=== PATIENT | male | born 1965 | race African-American/Black ===

== ENCOUNTER 2023-11-21 13:05 | Emergency (ER) | payer OTHER, SELFPAY ==
[2023-11-21] VITALS (14 sets, daily range): BP systolic 137–176; BP diastolic 83–121; PULSE 99–112; TEMP 36.6; O2SAT 97–99; BMI 30.3
--- NOTE | 2023-11-21 13:32 | ECG_ITS ---
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
--- NOTE | 2023-11-21 13:33 | ED.GENADUL1 ---
HPI HPI - General Adult General Chief complaint: Chest Pain Stated complaint: CHEST PAIN Time Seen by Provider: 11/21/23 13:17 Source: patient Mode of arrival: walk-in Limitations: no limitations History of Present Illness HPI narrative: Patient is a 58-year-old male who presents to the emergency department for the evaluation of chest pain across the left side of the chest for the last 3 days. Pain has been constant and he reports burning and soreness to the bilateral axilla and medial arms. He has not noticed any rashes. No lifting or twisting injuries. He has no history of coronary artery disease. He has not had any fevers, chills, cough, congestion, abdominal pain. He has chronic back pain that is not worse or different. No peripheral edema. Pain in the left chest is reproducible with touch and some movement. He states he has taken lisinopril for the last 30 years, no change in dosages. He states he has been using nitroglycerin that he took from a friend, not prescribed to him, for the last 2 days for chest pain without improvement. Related Data Home Medications ?Medication ?Instructions ?Recorded ?Confirmed insulin aspart U-100 100 unit/mL 45 unit subcut BID 11/21/23 11/21/23 (3 mL) subcutaneous pen (Novolog FlexPen U-100 Insulin aspart) lisinopril 40 mg tablet 40 mg PO DAILY 11/21/23 11/21/23 Previous Rx's ?Medication ?Instructions ?Recorded ketorolac 10 mg tablet 10 mg PO TID PRN pain #10 tabs 11/21/23 methocarbamol 750 mg tablet 750 mg PO TID PRN muscle pain #20 11/21/23 tabs Allergies Allergy/AdvReac Type Severity Reaction Status Date / Time No Known Drug Allergies Allergy Verified 11/21/23 13:23 Opioid HPI Opioid Management Most Recent Opioid Data: No Data to Display Review of Systems ROS Constitutional Denies: fever or chills Ears, nose, mouth, and throat Denies: throat pain or nasal congestion Cardiovascular Reports: chest pain Respiratory Denies: shortness of breath or cough Gastrointestinal Denies: nausea or vomiting Musculoskeletal Reports: back pain; Denies: neck pain or extremity pain Integumentary/Breast Denies: rash Neurological Denies: numbness in extremities or weakness in extremities Hematologic/Lymphatic Denies: easy bruising Exam Narrative Exam Narrative: Gen.: Awake, alert, in no distress Head: Normocephalic, atraumatic ENT: Moist mucous membranes Respiratory: No respiratory distress, lungs clear bilaterally Cardio: Tachycardia Gastrointestinal: Abdomen is soft, nondistended and nontender to palpation Extremities: Moves extremities equally Psych: Normal mood and affect Neuro: No focal neuro deficit Skin: Warm, dry, intact Constitutional Vital Signs, click to edit/add: Last Vital Signs Temp 98 F 11/21/23 13:23 Pulse 103 H 11/21/23 16:38 Resp 27 H 11/21/23 16:38 BP 152/109 H 11/21/23 16:38 Pulse Ox 99 11/21/23 16:38 O2 Del Method Room Air 11/21/23 13:23 Course Vital Signs Vital signs: Vital Signs Pulse Rate 112 H 11/21/23 13:12 Respiratory Rate 18 11/21/23 13:12 Blood Pressure 168/105 H 11/21/23 13:12 Pulse Oximetry 99 11/21/23 13:12 Oxygen Delivery Method Room Air 11/21/23 13:12 Temperature 98 F 11/21/23 13:23 Pulse Rate 103 H 11/21/23 16:38 Respiratory Rate 27 H 11/21/23 16:38 Blood Pressure 152/109 H 11/21/23 16:38 Pulse Oximetry 99 11/21/23 16:38 Oxygen Delivery Method Room Air 11/21/23 13:23 Medical Decision Making [facility] Narrative Medical decision making narrative: Patient with a heart score of 3 for risk factors of diabetes, hypertension, age and family history. He has no EKG changes, stable vital signs in the ER. He had 2 negative troponin lab studies and CT angio of the chest was performed for elevated D-dimer showing no evidence of PE or other abnormality. Patient's pain has been present for 3 days, it is reproducible and he has an unremarkable workup. He is discharged home with a short course of NSAIDs and muscle relaxants to follow-up with PCP and return to the ER if symptoms change or worsen. SUPERVISED APC VISIT, PHYSICIAN ATTESTATION: Based on the medical record the care appears appropriate. ? Medical Records Medical records reviewed: Yes I reviewed the patient's medical records Lab Data Lab results reviewed: Yes I reviewed the patient's lab results Labs: Lab Results 11/21/23 11/21/23 Range/Units 13:37 15:37 WBC 5.7 (4.0-11.0) 10^3/uL RBC 4.91 (4.70-6.10) 10^6/uL Hgb 15.0 (14.0-18.0) g/dL Hct 42.2 (42.0-54.0) % MCV 85.9 (80.0-94.0) fL MCH 30.5 (25.9-34.0) pg MCHC 35.5 H (29.9-35.2) g/dL RDW 12.4 (11.0-15.0) % Plt Count 202 (150-450) 10^3/uL MPV 11.1 (9.5-13.5) fL Neut % (Auto) 63.2 (43.0-75.0) % Lymph % (Auto) 24.6 (20.5-60.0) % [place] % (Auto) 11.0 (1.7-12.0) % Eos % (Auto) 0.3 L (0.9-7.0) % Baso % (Auto) 0.7 (0.2-2.0) % Neut # (Auto) 3.6 (1.4-6.5) 10^3/uL Lymph # (Auto) 1.4 (1.2-3.8) 10^3/uL [place] # (Auto) 0.6 (0.3-0.8) 10^3/uL Eos # (Auto) 0.0 (0.0-0.7) 10^3/uL Baso # (Auto) 0.0 (0.0-0.1) 10^3/uL Abs Immat Gran (auto) 0.01 (0.00-0.03) 10^3/uL Imm/Tot Granulo (auto) 0.2 (0.0-0.5) % PT 9.9 (9.0-11.6) sec INR 0.93 D-Dimer 1.13 H* (<=0.59) mg/L FEU Sodium 137 (136-145) mmol/L Potassium 3.9 (3.5-5.1) mmol/L Chloride 101 (98-107) mmol/L Carbon Dioxide 27.7 (21.0-32.0) mmol/L Anion Gap 12.2 BUN 15.0 (7.0-18.0) mg/dL Creatinine 1.09 (0.70-1.30) mg/dL Est GFR ( Amer) >60 (>=60) Est GFR (Non-Af Amer) >60 (>=60) BUN/Creatinine Ratio 13.8 Glucose 246 H (74-106) mg/dL Lactate 1.7 (0.4-2.0) mmol/L Calcium 9.3 (8.5-10.1) mg/dL Total Bilirubin 0.4 (0.2-1.0) mg/dL AST 16 (15-37) U/L ALT 27 (16-63) U/L Alkaline Phosphatase 89 (46-116) U/L Troponin I High Sens 9.5 9.5 (4.0-76.1) pg/mL NT-Pro-B Natriuret Pep 80.0 (<=900.0) pg/mL Total Protein 6.9 (6.4-8.2) g/dL Albumin 3.4 (3.4-5.0) g/dL Globulin 3.5 g/dL Albumin/Globulin Ratio 1.[address] scan - chest: Attestation: I have reviewed the pertinent imaging results. Radiologist's impression: ITS Impressions Chest CTA 11/21/23 14:25 IMPRESSION: 1. No evidence for pulmonary embolism. 2. Severe coronary artery calcification. Electronically authenticated by: SAMUEL TOMLIN Date: 11/21/2023 17:08 ECG Data Attestation: I personally reviewed and interpreted this ECG as follows: (Sinus tachycardia at a rate of 112, no acute ST elevation or ectopy. EKG reviewed by attending physician.) Discharge Plan Discharge Stand Alone Forms: Work/School Release, Portal Instructions Chief Complaint: Chest Pain Clinical Impression: Chest pain Patient Disposition: Home, Self-Care Time of Disposition Decision: 17:12 Condition: Good Prescriptions / Home Meds: New ketorolac 10 mg tablet 10 mg PO TID PRN (Reason: pain) Qty: 10 0RF methocarbamol 750 mg tablet 750 mg PO TID PRN (Reason: muscle pain) Qty: 20 0RF No Action lisinopril 40 mg tablet 40 mg PO DAILY insulin aspart U-100 [Novolog FlexPen U-100 Insulin] 100 unit/mL (3 mL) insulin pen 45 unit subcut BID Print Language: Palauan Instructions: Chest Pain (ED) Referrals: Physician,Non-Staff, MD [Primary Care Provider] - 1 week
[2023-11-21 13:45] LABS: Basophils Percent Auto 0.7 % (0.2-2.0); Eosinophils Percent Auto 0.3 % (0.9-7.0); Hematocrit 42.2 % (42.0-54.0); Immature Granulocytes Abs Auto 0.01 10^3/uL (0.00-0.03); Immature Granulocytes Pct Auto 0.2 % (0.0-0.5); Lymphocytes Absolute Auto 1.4 10^3/uL (1.2-3.8); Lymphocytes Percent Auto 24.6 % (20.5-60.0); Mean Corpuscular HGB Conc 35.5 g/dL (29.9-35.2); Mean Corpuscular Hemoglobin 30.5 pg (25.9-34.0); Mean Corpuscular Volume 85.9 fL (80.0-94.0); Mean Platelet Volume 11.1 fL (9.5-13.5); Monocytes Absolute Auto 0.6 10^3/uL (0.3-0.8); Neutrophils Absolute Auto 3.6 10^3/uL (1.4-6.5); Neutrophils Percent Auto 63.2 % (43.0-75.0); Platelet Count 202 10^3/uL (150-450); Red Blood Count 4.91 10^6/uL (4.70-6.10); Red Cell Distribution Width 12.4 % (11.0-15.0); White Blood Count 5.7 10^3/uL (4.0-11.0)
[2023-11-21] MEDS: 0.9 % SODIUM CHLORIDE 1,000 ML 999 ML IV (13:45)
[2023-11-21] MEDS: KETOROLAC TROMETHAMINE 30 MG/ML VIAL IVP (13:45)
[2023-11-21 14:04] LABS: INR 0.93; Prothrombin Time 9.9 sec (9.0-11.6)
[2023-11-21 14:08] LABS: Lactate/Lactic Acid 1.7 mmol/L (0.4-2.0)
[2023-11-21 14:13] LABS: Troponin I High Sensitivity 9.5 pg/mL (4.0-76.1)
[2023-11-21 14:15] LABS: Alanine Aminotransferase 27 U/L (16-63); Albumin Level 3.4 g/dL (3.4-5.0); Alkaline Phosphatase 89 U/L (46-116); Anion Gap 12.2; Aspartate Amino Transferase 16 U/L (15-37); BUN Creatinine Ratio 13.8; Bilirubin Total 0.4 mg/dL (0.2-1.0); Calcium 9.3 mg/dL (8.5-10.1); Carbon Dioxide 27.7 mmol/L (21.0-32.0); Chloride 101 mmol/L (98-107); Estimated GFR (African America >60 (>=60); Estimated GFR (Non-African Ame >60 (>=60); Globulin 3.5 g/dL; Glucose 246 mg/dL (74-106); Potassium 3.9 mmol/L (3.5-5.1); Sodium 137 mmol/L (136-145); Total Protein 6.9 g/dL (6.4-8.2)
[2023-11-21 14:25] LABS: D Dimer 1.13 mg/L FEU (<=0.59)
--- NOTE | 2023-11-21 14:25 | CT_ITS ---
[address] [address] Patient Name: AMERICO TATE MRN: [id number] date: 1965 Sex: M Assigned Patient Location: ER Current Patient Location: ER Accession/Order Number: [id number] Exam Date: 11/21/2023 15:05 Report Date: 11/21/2023 17:08 At the request of: JAZ SMITH Procedure: CT angio chest EXAM: CT angio chest HISTORY: Chest pain COMPARISON: 12/08/2009 TECHNIQUE: CT angiography of the pulmonary arteries following the administration of intravenous contrast. Coronal and sagittal MIP (maximum intensity projection) images were performed. Dose reduction techniques were achieved by using automated exposure control and/or adjustment of mA and/or kV according to patient size and/or use of iterative reconstruction technique. FINDINGS: The study is technically adequate for the diagnosis of pulmonary embolism, with good contrast bolus to the pulmonary arteries. TUBES AND IMPLANTS: None. CHEST WALL AND LOWER NECK: Unremarkable. BONES: No suspicious lesions. UPPER ABDOMEN: Unremarkable. MEDIASTINUM AND MAGGIE: Unremarkable. AORTA: No aneurysm PULMONARY ARTERIES: No embolism HEART: Not enlarged CORONARY ARTERIES: Severe coronary artery calcifications. LUNG AND AIRWAYS: Unremarkable. PLEURA: Unremarkable. CT/CT angio chest IMPRESSION: 1. No evidence for pulmonary embolism. 2. Severe coronary artery calcification. Electronically authenticated by: SAMUEL TOMLIN Date: 11/21/2023 17:08
[2023-11-21 16:10] LABS: Troponin I High Sensitivity 9.5 pg/mL (4.0-76.1)
== END 2023-11-21 17:20 | disposition home or self-care (01) ==
PROVIDERS: Physician Assistant; Emergency Provider Emergency Medicine
DX: R07.9 Chest pain, unspecified (principal); E11.9 Type 2 diabetes mellitus without complications; Z79.4 Long term (current) use of insulin; I10 Essential (primary) hypertension; Z79.899 Other long term (current) drug therapy
CPT/HCPCS: 36415; 71275; 80053; 83605; 83880; 84484; 85025; 85378; 85610; 93005; 96374; 99285; J1885; Q9967

== ENCOUNTER 2024-06-04 07:28 | Emergency (ER) | payer MEDICARE, SELFPAY ==
[2024-06-04] VITALS (27 sets, daily range): BP systolic 159–210; BP diastolic 86–112; PULSE 89–100; TEMP 37; O2SAT 98–100; BMI 28.5
--- NOTE | 2024-06-04 08:06 | ECG_ITS ---
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 Measurements Intervals [place] Rate: 95 P: 90 FL: 144 QRS: 69 QRSD: 84 T: 37 QT: 364 QTc: 417 Interpretive Statements 1100 Sinus rhythm 1102 Sinus arrhythmia [address] & [place] abnormality 9150 abnormal ECG Compared to ECG 11/21/2023 13:14:56 ST (T wave) deviation now present Sinus tachycardia no longer present Short [place] interval no longer present Electronically Signed On 06-04-2024 17:27:27 EDT by SIMONE HARLEY M.D.
--- NOTE | 2024-06-04 08:10 | ED_ITS ---
HPI HPI - General Adult General Chief complaint: Psychiatric Symptoms Stated complaint: upper extremity pain Time Seen by Provider: 06/04/24 07:34 Mode of arrival: walk-in History of Present Illness HPI narrative: 58-year-old male to the emergency department with multiple medical complaints. The patient reports that he has been using alcohol and cocaine daily for the last 2 years. He reports he has trouble sleeping at night due to his PTSD. He reports that is hard for him to leave the house to go to his medical appointments at the [facility] so he has not gone in over a year. He reports that he tried to use some harder drugs recently and ended up with an abscess on his right forearm that began over the last 5 days. He reports the abscess is what brought him to the emergency department today. He reports that he has suicidal ideation intermittently for years. He denies any plan. He denies any attempts. He denies any auditory visual hallucinations. When asked why he came to the emergency department today he says I just need some help man . He also has chronic pain in his right knee due to a previous patellar fracture that occurred over a year ago. He reports that the pain is not getting better and he is concerned he refractured it. There is no specific injury. He also reports that he gets a cramping pain up the back of his leg intermittently for the last few weeks. He is concerned he has a blood clot in his leg. Related Data Home Medications ?Medication ?Instructions ?Recorded ?Confirmed insulin aspart U-100 100 unit/mL 45 unit subcut BID 11/21/23 06/04/24 (3 mL) subcutaneous pen (Novolog FlexPen U-100 Insulin aspart) lisinopril 40 mg tablet 40 mg PO DAILY 11/21/23 06/04/24 Previous Rx's ?Medication ?Instructions ?Recorded methocarbamol 750 mg tablet 750 mg PO TID PRN muscle pain #20 11/21/23 tabs cephalexin 500 mg capsule 500 mg PO Q6H 7 days #28 caps 06/04/24 doxycycline monohydrate 100 mg 100 mg PO BID 7 days #14 caps 06/04/24 capsule Allergies Allergy/AdvReac Type Severity Reaction Status Date / Time No Known Drug Allergies Allergy Verified 11/21/23 13:23 Opioid HPI Opioid Management Most Recent Opioid Data: Ur Phencyclidine Scrn Negative (NEGATIVE) 06/04/24 08:12 05/19 10/12 Review of Systems ROS Status of ROS 10 or more systems reviewed and unremark able except as noted in history and below [facility] Social History Little interest or pleasure in doing things: not at all Feeling down, depressed, or hopeless: not at all Exam Narrative Exam Narrative: VITALS: I have reviewed the triage vital signs. GENERAL: Well developed, well appearing adult male in no acute distress. NEURO: Alert and oriented. Moves all extremities. Face is symmetric and expressive. EYES: PERRL. No scleral icterus or conjunctival injection. No discharge. HENT: Normocephalic, atraumatic. Hearing is grossly intact. Nares grossly patent and without discharge. Mucous membranes moist. NECK: No JVD. Patient moves neck without restriction. CARDIO: Rhythm regular. Normal rate. No murmur, rub, or gallop. Pulses equal bilaterally in the upper and lower extremity. No lower extremity edema. PULM: Lungs clear to auscultation in all blakely. No wheezes, rales, or rhonchi. No conversational dyspnea. No splinting, stridor, or accessory muscle use. GI/: Abdomen is soft and non-tender. Normoactive bowel sounds. EXTREMITIES: Symmetric muscle bulk. No joint swelling. No clubbing, cyanosis, or deformity. SKIN: Warm and dry. Normal turgor. No rash or lesions appreciated. Half dollar sized area of fluctuance erythema and warmth that is tender to the right anterior forearm. PSYCH: Anxious, tearful Constitutional Vital Signs, click to edit/add: Last Vital Signs Temp 98.6 F 06/04/24 07:32 Pulse 98 H 06/04/24 15:20 Resp 23 H 06/04/24 15:20 BP 168/96 H 06/04/24 15:28 Pulse Ox 100 06/04/24 11:00 O2 Del Method Room Air 06/04/24 07:32 Course Vital Signs Vital signs: Vital Signs Temperature 98.6 F 06/04/24 07:32 Pulse Rate 100 H 06/04/24 07:32 Respiratory Rate 18 06/04/24 07:32 Blood Pressure 210/90 H 06/04/24 07:32 Pulse Oximetry 99 06/04/24 07:32 Oxygen Delivery Method Room Air 06/04/24 07:32 Temperature 98.6 F 06/04/24 07:32 Pulse Rate 98 H 06/04/24 15:20 Respiratory Rate 23 H 06/04/24 15:20 Blood Pressure 168/96 H 06/04/24 15:28 Pulse Oximetry 100 06/04/24 11:00 Oxygen Delivery Method Room Air 06/04/24 07:32 Medical Decision Making MDM Narrative Medical decision making narrative: 58-year-old male to the emergency department with chief complaint of SI/substance abuse, abscess to the forearm, concerns about his right leg. Vital stable, the patient is afebrile. He is tearful and anxious on exam. Psychiatric screening labs are ordered. Will obtain an x-ray of his knee as well as a duplex of his right lower extremity to settle against concerns about the right lower extremity. The right lower extremity is neurovascularly intact without deformity. Patient agrees with this plan. Patient did screen positive on his psychiatric screening. He reports that he has passive suicidal ideation. He reports he has occasional thoughts but no plan to act on them. This has been ongoing for several years. He reports that he has been seen for this in the past. Low risk by C-SSRS screener. Duplex negative. X-ray with chronic findings. Lab work reviewed and noted. Severe hyperglycemia without DKA. He is hyponatremic but corrects to near normal. He has significant surrounding cellulitis from the abscess. A dose of vancomycin is ordered. [facility] Transfer process was initiated. I was called to the bedside as the patient stated he would like to leave AGAINST MEDICAL ADVICE. He is alert and oriented and has medical decision making [facility]. He expressed some chronic unchanged intermittent suicidal ideation without plan, I do not believe he has a risk to himself currently. I was called to the bedside and informed that the patient would like to leave AGAINST MEDICAL ADVICE at this time. The patient is oriented to person, place, and time, demonstrating all four luna elements of capacity to make decisions regarding the medical care offered. The patient speaks coherently and exhibits no evidence of having an altered level of consciousness or alcohol or drug intoxication to a point that would impair ability to delineate a choice. The patient demonstrates understanding and appreciation of the relevant information of the nature of their medical condition, as well as the risks, benefits, and treatment alternatives (including non-treatment), consequences of refusing care, and can appropriately communicate a rational reasoning about their choice of care options. Patient is aware the suspected diagnosis suggested by history and exam. The patient demonstrates understanding and appreciation of the relevant information of the nature of their medical condition, as well as the risks, benefits, and treatment alternatives (including non-treatment), consequences of refusing care, and can appropriately communicate a rational reasoning about their choice of care options. The risks of refusing recommended care that were disclosed and acknowledged by the patient include , neurologic dysfunction, permanent mental impairment, loss of limb, loss of sexual function, loss of current lifestyle, worsening of chronic condition, long-term disability. The patient understands they are welcome to return to the hospital at any time to receive the recommended care or any other care at any time, regardless of their ability to pay for such care. He was provided a prescription for Keflex and doxycycline. He was instructed to seek care elsewhere or return to this emergency department immediately to continue care. Discharge instructions were provided to the patient. Medical Records Medical records reviewed: Yes I reviewed the patient's medical records Lab Data Lab results reviewed: Yes I reviewed the patient's lab results Labs: Lab Results 06/04/24 06/04/24 06/04/24 Range/Units 08:12 08:17 13:24 WBC 11.2 H (4.0-11.0) 10^3/uL RBC 5.02 (4.70-6.10) 10^6/uL Hgb 15.4 (14.0-18.0) g/dL Hct 43.3 (42.0-54.0) % MCV 86.3 (80.0-94.0) fL MCH 30.7 (25.9-34.0) pg MCHC 35.6 H (29.9-35.2) g/dL RDW 11.9 (11.0-15.0) % Plt Count 187 (150-450) 10^3/uL MPV 11.5 (9.5-13.5) fL Neut % (Auto) 80.7 H (43.0-75.0) % Lymph % (Auto) 12.5 L (20.5-60.0) % [place] % (Auto) 6.0 (1.7-12.0) % Eos % (Auto) 0.2 L (0.9-7.0) % Baso % (Auto) 0.3 (0.2-2.0) % Neut # (Auto) 9.1 H (1.4-6.5) 10^3/uL Lymph # (Auto) 1.4 (1.2-3.8) 10^3/uL [place] # (Auto) 0.7 (0.3-0.8) 10^3/uL Eos # (Auto) 0.0 (0.0-0.7) 10^3/uL Baso # (Auto) 0.0 (0.0-0.1) 10^3/uL Abs Immat Gran (auto) 0.03 (0.00-0.03) 10^3/uL Imm/Tot Granulo (auto) 0.3 (0.0-0.5) % Sodium 129 L (136-145) mmol/L Potassium 4.2 (3.5-5.1) mmol/L Chloride 91 L (98-107) mmol/L Carbon Dioxide 27.8 (21.0-32.0) mmol/L Anion Gap 14.4 BUN 21.0 H (7.0-18.0) mg/dL Creatinine 1.28 (0.70-1.30) mg/dL Est GFR ( Amer) >60 (>=60 mL/min/1.73m^2) Est GFR (Non-Af Amer) 57 L (>=60 mL/min/1.73m^2) BUN/Creatinine Ratio 16.4 Glucose 554 H* (74-106) mg/dL Calcium 9.0 (8.5-10.1) mg/dL Total Bilirubin 0.3 (0.2-1.0) mg/dL AST 11 L (15-37) U/L ALT 13 L (16-63) U/L Alkaline Phosphatase 137 H (46-116) U/L Total Protein 7.7 (6.4-8.2) g/dL Albumin 3.0 L (3.4-5.0) g/dL Globulin 4.7 g/dL Albumin/Globulin Ratio 0.6 Urine Color Lt. yellow (YELLOW) Urine Clarity Clear (CLEAR) Urine pH 5.5 (5.0-9.0) Ur Specific [place] 1.010 (1.005-1.025) Urine Protein 30 A (NEG/TRACE) mg/dL Urine Glucose (UA) >=1000 A (NEGATIVE) mg/dL Urine Ketones Trace A (NEGATIVE) mg/dL Urine Occult Blood Trace-l (NEGATIVE) Urine Nitrite Negative (NEGATIVE) Urine Bilirubin Negative (NEGATIVE) Urine Urobilinogen 0.2 (0.2-1.0) EU/dL Ur Leukocyte Esterase Negative (NEGATIVE) Urine RBC 0-2 (0-2) #/HPF Urine WBC None seen (NONE SEEN) #/HPF Ur Squamous Epith Cells None seen (NONE/RARE) #/LPF Urine Crystals None seen (None Seen) #/HPF Urine Bacteria Trace A (NONE SEEN) #/HPF Urine Casts None seen (NONE SEEN) #/LPF Urine Mucus None seen (NONE SEEN) Ur Culture Indicated? No Urine Opiates Screen Negative (NEGATIVE) Ur Buprenorphine Scrn Negative (NEGATIVE) Ur Oxycodone Screen Negative (NEGATIVE) Urine Methadone Screen Negative (NEGATIVE) Ur Barbiturates Screen Negative (NEGATIVE) U Tricyclic Antidepress Negative (NEGATIVE) Ur Phencyclidine Scrn Negative (NEGATIVE) Ur Amphetamines Screen Negative (NEGATIVE) U Methamphetamines Scrn Negative (NEGATIVE) U Benzodiazepines Scrn Negative (NEGATIVE) Urine Cocaine Screen Positive A (NEGATIVE) U Cannabinoids Screen Negative (NEGATIVE) Ethanol Quant <3 mg/dL SARS-CoV-2 Ag (CV2AG) (NEGATIVE) POC Glucose 521 H* 287 H (74-106) mg/dL 06/04/24 Range/Units 14:00 WBC (4.0-11.0) 10^3/uL RBC (4.70-6.10) 10^6/uL Hgb (14.0-18.0) g/dL Hct (42.0-54.0) % MCV (80.0-94.0) fL MCH (25.9-34.0) pg MCHC (29.9-35.2) g/dL RDW (11.0-15.0) % Plt Count (150-450) 10^3/uL MPV (9.5-13.5) fL Neut % (Auto) (43.0-75.0) % Lymph % (Auto) (20.5-60.0) % [place] % (Auto) (1.7-12.0) % Eos % (Auto) (0.9-7.0) % Baso % (Auto) (0.2-2.0) % Neut # (Auto) (1.4-6.5) 10^3/uL Lymph # (Auto) (1.2-3.8) 10^3/uL [place] # (Auto) (0.3-0.8) 10^3/uL Eos # (Auto) (0.0-0.7) 10^3/uL Baso # (Auto) (0.0-0.1) 10^3/uL Abs Immat Gran (auto) (0.00-0.03) 10^3/uL Imm/Tot Granulo (auto) (0.0-0.5) % Sodium (136-145) mmol/L Potassium (3.5-5.1) mmol/L Chloride (98-107) mmol/L Carbon Dioxide (21.0-32.0) mmol/L Anion Gap BUN (7.0-18.0) mg/dL Creatinine (0.70-1.30) mg/dL Est GFR ( Amer) (>=60 mL/min/1.73m^2) Est GFR (Non-Af Amer) (>=60 mL/min/1.73m^2) BUN/Creatinine Ratio Glucose (74-106) mg/dL Calcium (8.5-10.1) mg/dL Total Bilirubin (0.2-1.0) mg/dL AST (15-37) U/L ALT (16-63) U/L Alkaline Phosphatase (46-116) U/L Total Protein (6.4-8.2) g/dL Albumin (3.4-5.0) g/dL Globulin g/dL Albumin/Globulin Ratio Urine Color (YELLOW) Urine Clarity (CLEAR) Urine pH (5.0-9.0) Ur Specific [place] (1.005-1.025) Urine Protein (NEG/TRACE) mg/dL Urine Glucose (UA) (NEGATIVE) mg/dL Urine Ketones (NEGATIVE) mg/dL Urine Occult Blood (NEGATIVE) Urine Nitrite (NEGATIVE) Urine Bilirubin (NEGATIVE) Urine Urobilinogen (0.2-1.0) EU/dL Ur Leukocyte Esterase (NEGATIVE) Urine RBC (0-2) #/HPF Urine WBC (NONE SEEN) #/HPF Ur Squamous Epith Cells (NONE/RARE) #/LPF Urine Crystals (None Seen) #/HPF Urine Bacteria (NONE SEEN) #/HPF Urine Casts (NONE SEEN) #/LPF Urine Mucus (NONE SEEN) Ur Culture Indicated? Urine Opiates Screen (NEGATIVE) Ur Buprenorphine Scrn (NEGATIVE) Ur Oxycodone Screen (NEGATIVE) Urine Methadone Screen (NEGATIVE) Ur Barbiturates Screen (NEGATIVE) U Tricyclic Antidepress (NEGATIVE) Ur Phencyclidine Scrn (NEGATIVE) Ur Amphetamines Screen (NEGATIVE) U Methamphetamines Scrn (NEGATIVE) U Benzodiazepines Scrn (NEGATIVE) Urine Cocaine Screen (NEGATIVE) U Cannabinoids Screen (NEGATIVE) Ethanol Quant mg/dL SARS-CoV-2 Ag (CV2AG) Negative (NEGATIVE) POC Glucose (74-106) mg/dL Imaging Data Venous US: Attestation: I have reviewed the pertinent imaging results. (See PACS for radiologist interpretation.) Radiologist's impression: Negative for DVT ECG Data Attestation: I personally reviewed and interpreted this ECG as follows: (Normal sinus rhythm at a rate of 95. No STEMI. Normal QTc at 417.) Discharge Plan Discharge Stand Alone Forms: Portal Instructions Chief Complaint: Psychiatric Symptoms Clinical Impression: Cellulitis, Abscess, Insomnia, Polysubstance abuse, Left against medical advice Patient Disposition: Left Against Medical Advice Time of Disposition Decision: 16:00 Condition: Good Prescriptions / Home Meds: New doxycycline monohydrate 100 mg capsule 100 mg PO BID 7 Days Qty: 14 0RF cephalexin 500 mg capsule 500 mg PO Q6H 7 Days Qty: 28 0RF No Action lisinopril 40 mg tablet 40 mg PO DAILY insulin aspart U-100 [Novolog FlexPen U-100 Insulin] 100 unit/mL (3 mL) insulin pen 45 unit subcut BID methocarbamol 750 mg tablet 750 mg PO TID PRN (Reason: muscle pain) Qty: 20 0RF Print Language: Telugu Instructions: Cellulitis (ED), Abuse of Alcohol (ED), Diabetic Hyperglycemia (ED), Incision and Drainage (ED) Additional Instructions: You may return at any time to continue your care. You had a severe infection on your right forearm which required IV antibiotics. You had a severely elevated blood glucose which we believe needed more treatment and stabilization on insulin so you could be discharged home. Referrals: Noel Crane MD [Physician] - 1 week Physician,Non-Staff, [Primary Care Provider] - 1 week Procedures ED Procedure Instructions Procedures Procedures: Procedure: I&D abscess Location: Right forearm Contraindication: None Verbal consent was obtained for procedure. LET was used for topical anesthesia. The abscess was identified via [id number] ultrasound, no vessels were identified and the area of interest. Area was prepped with chlorhexidine. An approximately 7 mm stab incision was made with an 11 blade scalpel. Approximately 50 cc of purulent drainage was expressed. Bleeding was controlled. Patient tolerated the procedure well. There are no immediate complications. A dry sterile dressing was placed. Juan Nj DO, FAAEM
[2024-06-04 08:21] LABS: Glucometer 521 mg/dL (74-106)
[2024-06-04 08:46] LABS: Amphetamine Screen Urine NEGATIVE (NEGATIVE); Barbiturates Screen Urine NEGATIVE (NEGATIVE); Benzodiazepines Screen Urine NEGATIVE (NEGATIVE); Buprenorphine Screen Urine NEGATIVE (NEGATIVE); Cannabinoid Screen Urine NEGATIVE (NEGATIVE); Cocaine Screen Urine POSITIVE (NEGATIVE); Methadone Screen Urine NEGATIVE (NEGATIVE); Methamphetamines Screen Urine NEGATIVE (NEGATIVE); Opiate Screen Urine NEGATIVE (NEGATIVE); Oxycodone Screen Urine NEGATIVE (NEGATIVE); Phencyclidine Screen Urine NEGATIVE (NEGATIVE); Tricyclic Antidepressant Urine NEGATIVE (NEGATIVE)
[2024-06-04] MEDS: LIDOCAINE/EPINEPHRINE/TETRACAINE 3 ML GEL.PF.APP TOPICAL (08:46)
[2024-06-04 08:49] LABS: Basophils Percent Auto 0.3 % (0.2-2.0); Eosinophils Percent Auto 0.2 % (0.9-7.0); Hematocrit 43.3 % (42.0-54.0); Hemoglobin 15.4 g/dL (14.0-18.0); Immature Granulocytes Abs Auto 0.03 10^3/uL (0.00-0.03); Immature Granulocytes Pct Auto 0.3 % (0.0-0.5); Lymphocytes Absolute Auto 1.4 10^3/uL (1.2-3.8); Lymphocytes Percent Auto 12.5 % (20.5-60.0); Mean Corpuscular HGB Conc 35.6 g/dL (29.9-35.2); Mean Corpuscular Hemoglobin 30.7 pg (25.9-34.0); Mean Corpuscular Volume 86.3 fL (80.0-94.0); Mean Platelet Volume 11.5 fL (9.5-13.5); Monocytes Absolute Auto 0.7 10^3/uL (0.3-0.8); Neutrophils Absolute Auto 9.1 10^3/uL (1.4-6.5); Neutrophils Percent Auto 80.7 % (43.0-75.0); Platelet Count 187 10^3/uL (150-450); Red Blood Count 5.02 10^6/uL (4.70-6.10); Red Cell Distribution Width 11.9 % (11.0-15.0); White Blood Count 11.2 10^3/uL (4.0-11.0)
[2024-06-04 09:08] LABS: Alanine Aminotransferase 13 U/L (16-63); Albumin Globulin Ratio 0.6; Alkaline Phosphatase 137 U/L (46-116); Anion Gap 14.4; Aspartate Amino Transferase 11 U/L (15-37); BUN Creatinine Ratio 16.4; Bilirubin Total 0.3 mg/dL (0.2-1.0); Carbon Dioxide 27.8 mmol/L (21.0-32.0); Chloride 91 mmol/L (98-107); Estimated GFR (African America >60 (>=60 mL/min/1.73m^2); Estimated GFR (Non-African Ame 57 (>=60 mL/min/1.73m^2); Globulin 4.7 g/dL; Potassium 4.2 mmol/L (3.5-5.1); Sodium 129 mmol/L (136-145); Total Protein 7.7 g/dL (6.4-8.2)
[2024-06-04 09:10] LABS: Ethanol <3 mg/dL; Glucose 554 mg/dL (74-106)
[2024-06-04] MEDS: 0.9 % SODIUM CHLORIDE 1,000 ML 1000 ML IV (09:42)
[2024-06-04] MEDS: KETOROLAC TROMETHAMINE 30 MG/ML VIAL 15 MG IVP (09:42)
[2024-06-04] MEDS: INSULIN REGULAR, HUMAN (100 UNIT/ML) 10 ML MDV 10 UNIT SUBQ (09:56)
[2024-06-04 10:37] LABS: Bilirubin Urine NEGATIVE (NEGATIVE); Blood Urine TRACE-L (NEGATIVE); Clarity Urine CLEAR (CLEAR); Color Urine LT. YELLOW (YELLOW); Glucose Urine UA >=1000 mg/dL (NEGATIVE); Ketones Urine TRACE mg/dL (NEGATIVE); Leukocyte Esterase Urine NEGATIVE (NEGATIVE); Nitrite Urine NEGATIVE (NEGATIVE); Protein Urine 30 mg/dL (NEG/TRACE); Urobilinogen Urine 0.2 EU/dL (0.2-1.0); pH Urine 5.5 (5.0-9.0)
[2024-06-04 10:48] LABS: Bacteria Urine TRACE #/HPF (NONE SEEN); Cast Seen? NONE SEEN #/LPF (NONE SEEN); Crystals Seen? None Seen #/HPF (None Seen); Mucus Urine NONE SEEN (NONE SEEN); RBC Urine 0-2 #/HPF (0-2); Squamous Epithelial Cell Urine NONE SEEN #/LPF (NONE/RARE); Urine Culture Indicated NO; WBC Urine NONE SEEN #/HPF (NONE SEEN)
[2024-06-04] MEDS: VANCOMYCIN HCL 1,000 MG in 0.9 % SODIUM CHLORIDE 250 ML 250 MG IV (11:07)
[2024-06-04 13:27] LABS: Glucometer 287 mg/dL (74-106)
[2024-06-04 14:44] LABS: Internal Control Within Normal Limits; SARS-CoV-2 Ag NEGATIVE (NEGATIVE)
== END 2024-06-04 16:14 | disposition left against medical advice (07) ==
PROVIDERS: Emergency Provider Student in an Organized Health Care Education/Training Program
DX: L02.413 Cutaneous abscess of right upper limb (principal); Z53.29 Procedure and treatment not carried out because of patient's decision for other reasons; M25.561 Pain in right knee; R45.851 Suicidal ideations; R73.9 Hyperglycemia, unspecified; F19.10 Other psychoactive substance abuse, uncomplicated; F10.90 Alcohol use, unspecified, uncomplicated; G47.00 Insomnia, unspecified; M79.604 Pain in right leg; L03.113 Cellulitis of right upper limb; G89.29 Other chronic pain; R25.2 Cramp and spasm
CPT/HCPCS: 10060; 36415; 73562; 80053; 80307; 80320; 81001; 85025; 87811; 93005; 93971; 96365; 96375; 99285; J1817; J1885; J3370